=== PATIENT | female | born 1940 | race Asian ===

== ENCOUNTER 2021-03-26 13:59 | Inpatient (IN) | payer MEDICARE ==
[~2021-03-26] VITALS: Ht 152.4 cm; Wt 48.5 kg
[2021-03-26] MEDS ORDERED: SENN-197 PO (14:14)
[2021-03-26] MEDS ORDERED: XALA2.5OS OU (14:14)
[2021-03-26] MEDS ORDERED: AMLO-258 PO (14:14)
[2021-03-26] MEDS ORDERED: RAMI5CAP67 PO (14:14)
[2021-03-26] MEDS ORDERED: ATOR10TA84 PO (14:14)
[2021-03-26] MEDS ORDERED: METF-911 PO (14:14)
[2021-03-26] MEDS ORDERED: LUTE1CAP5 PO (14:14)
[2021-03-26] MEDS ORDERED: CALC-840 PO (14:14)
[2021-03-26] MEDS ORDERED: RALO60 PO (14:14)
[2021-03-26] MEDS ORDERED: LEVO75 PO (14:14)
[2021-03-26] MEDS ORDERED: LEVO5TAB29 PO (14:14)
[2021-03-26] MEDS ORDERED: ASPI-1522 PO (14:14)
[2021-03-26] MEDS ORDERED: ASCO500 PO (14:14)
[2021-03-26] MEDS ORDERED: ALEN70TA65 PO (14:14)
[2021-03-26 14:24] LABS: GLUCOSE,POINT OF CARE 146 MG/DL (70-110)
[2021-03-26 15:05] LABS: BASOPHILS % (AUTO) 0.6 % (0.0-2.0); EOSINOPHILS % (AUTO) 0.7 % (1.0-6.0); HEMATOCRIT 34.3 % (36-46); HEMOGLOBIN 11.2 g/dL (12.0-16.0); LYMPHOCYTES # (AUTO) 1.1 K/uL (1.0-4.8); LYMPHOCYTES % (AUTO) 12.1 % (22.0-44.0); MEAN CORPUSCULAR HEMOGLOBIN 31.3 pg (26.0-34.0); MEAN CORPUSCULAR HGB CONC 32.7 G/dL (31.0-37.0); MEAN CORPUSCULAR VOLUME 96 fL (80-100); MONOCYTES # (AUTO) 0.6 K/uL (0.1-1.0); MONOCYTES % (AUTO) 6.6 % (2.0-9.0); NEUTROPHILS # (AUTO) 7.2 K/uL (1.8-7.7); PLATELET COUNT (AUTO) 395 K/uL (150-450); RED BLOOD CELL COUNT(AUTO) 3.58 MIL/uL (4.00-5.20); RED CELL DISTRIBUTION WIDTH 12.6 % (11.5-14.5)
[2021-03-26 15:15] LABS: CALCIUM, TOTAL 8.8 mg/dL (8.8-10.5); CREATININE 0.98 mg/dL (0.60-1.30); POTASSIUM 4.4 mmol/L (3.5-5.1)
[2021-03-26 15:24] LABS: D-DIMER 2.4 mg/L FEU (0.00-0.50); PROTHROMBIN TIME 10.4 SEC (9.4-11.6)
[2021-03-26 15:40] LABS: ALBUMIN 3.5 g/dL (3.4-5.0); BILIRUBIN,TOTAL 0.2 mg/dL (0.1-1.0); TOTAL PROTEIN, SERUM 8.2 g/dL (6.4-8.2)
[2021-03-26] MEDS ORDERED: SODIUM CHLORIDE 0.9% 1,000 ML IV ONE (16:45)
[2021-03-26] MEDS ORDERED: SODIUM CHLORIDE 0.9% 100 ML ONE (16:45)
[2021-03-26] MEDS ORDERED: IOHEXOL 350 MG/ML 100 ML VIAL ONE (16:46)
[2021-03-26] MEDS ORDERED: ACETAMINOPHEN 325 MG TABLET PO PRN ×2 (19:30→19:45)
[2021-03-26] MEDS ORDERED: HEPARIN SODIUM 25000 UNITS/D5W 250 ML IV PRN (19:30)
[2021-03-26] MEDS ORDERED: ONDANSETRON HCL 4 MG/2 ML VIAL IVP PRN ×2 (19:30→19:45)
[2021-03-26] MEDS ORDERED: WARFARIN SODIUM 5 MG TABLET PO ONE (19:30)
[2021-03-26] MEDS ORDERED: 0.9% SODIUM CHLORIDE 10 ML SYRINGE IVP PRN (19:30)
[2021-03-26] MEDS ORDERED: HEPARIN SODIUM,PORCINE 5,000 UNITS/ML VIAL IVP PRN ×4 (19:45→20:00)
[2021-03-26 20:08] LABS: % IRON SATURATION 6.6 % (22-44)
[2021-03-26 20:28] LABS: BASOPHILS % (AUTO) 0.8 % (0.0-2.0); EOSINOPHILS % (AUTO) 0.7 % (1.0-6.0); HEMOGLOBIN 11.4 g/dL (12.0-16.0); LYMPHOCYTES # (AUTO) 2.2 K/uL (1.0-4.8); LYMPHOCYTES % (AUTO) 24.4 % (22.0-44.0); MEAN CORPUSCULAR HGB CONC 32.5 G/dL (31.0-37.0); MEAN CORPUSCULAR VOLUME 96 fL (80-100); MONOCYTES # (AUTO) 0.7 K/uL (0.1-1.0); NEUTROPHILS # (AUTO) 5.9 K/uL (1.8-7.7); NEUTROPHILS % (AUTO) 66.1 % (40.0-70.0); PLATELET COUNT (AUTO) 402 K/uL (150-450); RED BLOOD CELL COUNT(AUTO) 3.67 MIL/uL (4.00-5.20); RED CELL DISTRIBUTION WIDTH 12.9 % (11.5-14.5)
[2021-03-26 20:37] LABS: APPEARANCE,URINE CLEAR (CLEAR); BILIRUBIN,URINE NEGATIVE (NEGATIVE); GLUCOSE, URINE (UA) NEGATIVE (NEGATIVE); KETONES,URINE NEGATIVE (NEGATIVE); LEUKOCYTE ESTERASE ,URINE TRACE (NEGATIVE); OCCULT BLOOD,URINE NEGATIVE (NEGATIVE); PH,URINE 6.5 (5.0-8.0); PROTEIN,URINE NEGATIVE (NEGATIVE); UROBILINOGEN,URINE 0.2 mg/dL (<=1.0)
[2021-03-26 20:40] LABS: PROTHROMBIN TIME 10.8 SEC (9.4-11.6)
[2021-03-26] MEDS ORDERED: INSULIN LISPRO 100 UNITS/ML SQ PRN (20:45)
[2021-03-26] MEDS ORDERED: DEXTROSE 50%-WATER 25 GM/50 ML SYRINGE IVP PRN (20:45)
[2021-03-26] MEDS ORDERED: POLYETHYLENE GLYCOL 3350 17 GM PACKET PO PRN (20:45)
[2021-03-26 20:47] LABS: BACTERIA,URINE Many /HPF (None Seen); NITRATE,URINE POSITIVE (NEGATIVE); RBC,URINE 0-2 /HPF (0-2); SQUAMOUS EPITHELIAL CELL,UR Moderate /LPF (None Seen)
[2021-03-26] MEDS: DOCUSATE SODIUM 100 MG CAPSULE PO SCH (21:25)
[2021-03-26] MEDS: INSULIN GLARGINE,HUM.REC.ANLOG 100 UNITS/ML SQ SCH (21:30)
[2021-03-26 21:43] LABS: GLUCOSE,POINT OF CARE 104 MG/DL (70-110)
[2021-03-26 22:33] VITALS: BP 131/62
[2021-03-26] MEDS: ATORVASTATIN CALCIUM 10 MG TABLET PO SCH (22:53)
[2021-03-26] MEDS: RAMIPRIL 5 MG CAPSULE PO SCH (22:53)
[2021-03-26] MEDS: LATANOPROST 0.005% 2.5 ML OPHTHALMIC SOLUTION OU SCH (22:54)
[2021-03-26] MEDS: HEPARIN SODIUM 25000 UNITS/D5W 250 ML IV PRN (23:06)
[2021-03-27 04:42] VITALS: BP 124/64
[2021-03-27] MEDS: LEVOTHYROXINE SODIUM 75 MCG TABLET PO SCH (05:55)
[2021-03-27 07:24] LABS: BASOPHILS % (AUTO) 1.1 % (0.0-2.0); EOSINOPHILS % (AUTO) 3.4 % (1.0-6.0); HEMATOCRIT 33.1 % (36-46); HEMOGLOBIN 10.8 g/dL (12.0-16.0); LYMPHOCYTES # (AUTO) 1.2 K/uL (1.0-4.8); MEAN CORPUSCULAR HGB CONC 32.7 G/dL (31.0-37.0); MEAN CORPUSCULAR VOLUME 95 fL (80-100); MONOCYTES # (AUTO) 0.5 K/uL (0.1-1.0); MONOCYTES % (AUTO) 6.9 % (2.0-9.0); NEUTROPHILS # (AUTO) 5.1 K/uL (1.8-7.7); NEUTROPHILS % (AUTO) 71.6 % (40.0-70.0); PLATELET COUNT (AUTO) 385 K/uL (150-450); RED BLOOD CELL COUNT(AUTO) 3.49 MIL/uL (4.00-5.20); RED CELL DISTRIBUTION WIDTH 12.9 % (11.5-14.5)
[2021-03-27 07:49] VITALS: BP 118/60
[2021-03-27 07:51] LABS: INR 1.1 (0.9-1.1); PROTHROMBIN TIME 11.8 SEC (9.4-11.6)
[2021-03-27] MEDS: AmLODIPine BESYLATE 10 MG TABLET PO SCH (08:31)
[2021-03-27] MEDS: ASPIRIN 81 MG DR TABLET PO SCH (08:31)
[2021-03-27] MEDS: DOCUSATE SODIUM 100 MG CAPSULE PO SCH ×2 (08:31→20:34)
[2021-03-27] MEDS: VIT A,C & E/LUTEIN/MINERALS TABLET PO SCH (08:31)
[2021-03-27] MEDS: ASCORBIC ACID 500 MG TABLET PO SCH (08:37)
[2021-03-27 09:01] LABS: GLUCOMETER DEV NAME(LOC) 5S.2B; GLUCOSE,POINT OF CARE 97 MG/DL (70-110)
[2021-03-27 09:04] LABS: ALANINE AMINOTRANSFERASE 19 U/L (12-78); ALBUMIN 2.8 g/dL (3.4-5.0); ALKALINE PHOSPHATASE 56 U/L (46-116); ANION GAP 10 mmol/L (8-16); ASPARTATE AMINOTRANSFERASE 19 U/L (15-37); BILIRUBIN,TOTAL 0.3 mg/dL (0.1-1.0); CARBON DIOXIDE 25 mmol/L (22-29); CHLORIDE 106 mmol/L (98-107); CREATININE 0.57 mg/dL (0.60-1.30); GLOMERULAR FILTR. RATE CALC > 60 mL/min (>60); GLUCOSE,RANDOM 104 mg/dL (70-110); POTASSIUM 3.7 mmol/L (3.5-5.1); SODIUM SERUM 141 mmol/L (136-145); UREA NITROGEN, BLOOD 11 mg/dL (7-18)
[2021-03-27 11:30] VITALS: BP 120/72
[2021-03-27 15:34] VITALS: BP 109/53
[2021-03-27 19:34] VITALS: BP 108/56
[2021-03-27] MEDS: ATORVASTATIN CALCIUM 10 MG TABLET PO SCH (20:34)
[2021-03-27] MEDS: RAMIPRIL 5 MG CAPSULE PO SCH (20:34)
[2021-03-27] MEDS: LATANOPROST 0.005% 2.5 ML OPHTHALMIC SOLUTION OU SCH (20:34)
[2021-03-27] MEDS: INSULIN GLARGINE,HUM.REC.ANLOG 100 UNITS/ML SQ SCH (20:38)
[2021-03-27 23:35] VITALS: BP 105/64
[2021-03-27 23:49] LABS: GLUCOMETER DEV NAME(LOC) 5S.1; GLUCOSE,POINT OF CARE 98 MG/DL (70-110)
[2021-03-27 23:49] LABS: GLUCOMETER DEV NAME(LOC) 5S.1; GLUCOSE,POINT OF CARE 101 MG/DL (70-110)
[2021-03-27 23:49] LABS: GLUCOMETER DEV NAME(LOC) 5S.1; GLUCOSE,POINT OF CARE 122 MG/DL (70-110)
[2021-03-28] MEDS: HEPARIN SODIUM 25000 UNITS/D5W 250 ML IV PRN (03:51)
[2021-03-28 04:05] VITALS: BP 112/66
[2021-03-28] MEDS: LEVOTHYROXINE SODIUM 75 MCG TABLET PO SCH (06:02)
[2021-03-28 06:24] LABS: GLUCOMETER DEV NAME(LOC) 5S.2B; GLUCOSE,POINT OF CARE 103 MG/DL (70-110)
[2021-03-28 07:40] VITALS: BP 125/70
[2021-03-28] MEDS: DOCUSATE SODIUM 100 MG CAPSULE PO SCH (08:41)
[2021-03-28] MEDS: ASPIRIN 81 MG DR TABLET PO SCH (08:41)
[2021-03-28] MEDS: VIT A,C & E/LUTEIN/MINERALS TABLET PO SCH (08:41)
[2021-03-28] MEDS: ASCORBIC ACID 500 MG TABLET PO SCH (08:42)
[2021-03-28] MEDS: AmLODIPine BESYLATE 10 MG TABLET PO SCH (08:42)
[2021-03-28 11:49] LABS: GLUCOMETER DEV NAME(LOC) 5S.2B; GLUCOSE,POINT OF CARE 78 MG/DL (70-110)
[2021-03-28 11:55] VITALS: BP 119/56
[2021-03-28] MEDS ORDERED: APIX5TAB PO ×2 (14:02→14:03)
[2021-03-28] MEDS ORDERED: APIXABAN 5 MG TABLET PO ONE (16:45)
[2021-03-28 17:00] VITALS: BP 117/55
[2021-03-28 19:57] LABS: GLUCOMETER DEV NAME(LOC) 5N.3; GLUCOSE,POINT OF CARE 104 MG/DL (70-110)
[2021-04-02] MEDS ORDERED: ALENDRONATE SODIUM 70 MG TABLET PO SCH (06:30)
== END 2021-03-28 17:30 | disposition home or self-care (01) | DRG 176 ==
LOC: EMS 14:06 → 5S 19:44
PROVIDERS: ADMIT Internal Medicine; ATTEND Internal Medicine
DX: I26.93 Single subsegmental thrombotic pulmonary embolism without acute cor pulmonale (principal); E11.9 Type 2 diabetes mellitus without complications; M81.0 Age-related osteoporosis without current pathological fracture; E78.5 Hyperlipidemia, unspecified; K59.09 Other constipation; I10 Essential (primary) hypertension; E03.9 Hypothyroidism, unspecified; D64.9 Anemia, unspecified; Z79.810 Long term (current) use of selective estrogen receptor modulators (SERMs); Z79.84 Long term (current) use of oral hypoglycemic drugs; Z79.82 Long term (current) use of aspirin
CPT/HCPCS: 71045; 71275; 80053; 81001; 82550; 82962; 83540; 83550; 83880; 84484; 85025; 85379; 85610; 85730; 87077; 87086; 87186; 93005; 93306; 93971; 99291; A9575; J1644; J1815; J7050; 36415-L1; 36415-TC